=== PATIENT | male | born 1985 | race African-American/Black ===

== ENCOUNTER 2022-11-29 05:19 | Emergency (ER) | payer OTHER, BC ==
[2022-11-29] MEDS ORDERED: Boostrix 0.5 ML (Tdap) VIAL (>/=7 yrs of age) ONE (05:52)
[2022-11-29] MEDS ORDERED: Ibuprofen 800 MG TAB ONE (05:52)
[2022-11-29] MEDS ORDERED: Bacitracin 1 PK ONE (06:07)
== END 2022-11-29 06:40 | disposition home or self-care (01) ==
LOC: MADERS 05:19
DX: S63.612A Unspecified sprain of right middle finger, initial encounter (principal); S29.012A Strain of muscle and tendon of back wall of thorax, initial encounter; S30.815A Abrasion of unspecified external genital organs, male, initial encounter; S80.812A Abrasion, left lower leg, initial encounter; S80.811A Abrasion, right lower leg, initial encounter; Z23 Encounter for immunization; V89.2XXA Person injured in unspecified motor-vehicle accident, traffic, initial encounter
CPT/HCPCS: 90471; 90715